=== PATIENT | male | born 2000 | race Hispanic/Latino ===

== ENCOUNTER 2019-05-04 20:53 | Emergency (ER) | payer OTHER, SELFPAY ==
[2019-05-04] MEDS ORDERED: Ondansetron PF 4 MG/2 ML Vial ONE (21:35)
[2019-05-04 21:40] LABS: #Basophils 0.1 thou/uL (0.0-0.2); #Eosinphils 0.3 thou/uL (0.0-0.7); #Lymphocytes 2.7 thou/uL (1.20-3.40); #Monocytes 0.9 thou/uL (0.11-0.59); #Neutrophils 6.6 thou/uL (1.40-6.50); %Basophils 0.6 % (0.0-1.0); %Lymphocytes 25.4 % (21.0-51.0); %Monocytes 8.2 % (0.0-10.0); %Neutrophils 62.7 % (42.0-75.0); Hemoglobin 14.4 g/dL (14.0-18.0); Mean Corpuscular HGB CONC 34.8 g/dL (32.0-36.0); Mean Corpuscular Hemoglobin 33.3 pg (27.0-31.0); Mean Corpuscular Volume 95.8 fL (78.0-98.0); Platelet Count 202 thou/uL (130-400); Red Blood Cell (RBC) Count 4.31 mill/uL (4.70-6.10); White Blood Cell (WBC) Count 10.5 thou/uL (4.8-10.8)
[2019-05-04 22:01] LABS: ALT (SGPT) 13 U/L (8-55); AST (SGOT) 14 U/L (5-34); Alkaline Phosphatase 63 U/L (40-150); Anion Gap 13 mmol/L (10-20); BUN (Urea Nitrogen) 13 mg/dL (8.9-20.6); Bilirubin, Total 0.3 mg/dL (0.2-1.2); Calc. Creatinine Clearance 0 mL/min (70-130); Calcium 9.1 mg/dL (7.8-10.44); Carbon Dioxide 24 mmol/L (22-29); Chloride 105 mmol/L (98-107); Estimated GFR-MDRD Greater than 90; Globulin 2.2 g/dL (2.4-3.5); Glucose 85 mg/dL (70-105); Lipase 25 U/L (8-78); Magnesium 2.1 mg/dL (1.6-2.6); Potassium 3.8 mmol/L (3.5-5.1); Protein, Total 6.2 g/dL (6.0-8.3); Sodium 138 mmol/L (136-145)
[2019-05-04] MEDS ORDERED: Ibuprofen 200 MG TAB ONE (23:05)
== END 2019-05-04 23:14 | disposition home or self-care (01) ==
LOC: ERS 20:53
DX: R11.2 Nausea with vomiting, unspecified (principal); R19.7 Diarrhea, unspecified; J45.909 Unspecified asthma, uncomplicated; F17.210 Nicotine dependence, cigarettes, uncomplicated
CPT/HCPCS: 80053; 83690; 83735; 85025; 94760; 96361; 96374; J2405

== ENCOUNTER 2019-05-10 21:50 | Emergency (ER) | payer SELFPAY | END 2019-05-10 22:35 | disposition home or self-care (01) | LOC: ERS 21:50 | DX: J45.901 Unspecified asthma with (acute) exacerbation (principal); F17.210 Nicotine dependence, cigarettes, uncomplicated | CPT/HCPCS: 99284 ==

== ENCOUNTER 2019-08-15 18:06 | Emergency (ER) | payer SELFPAY ==
--- NOTE | 2019-08-15 18:30 | RAD ---
EXAM: XR Hand Rt 3 View STANDARD PROVIDED CLINICAL HISTORY: Pain FINDINGS: There is no evidence for fracture or other acute osseous abnormality. Alignment appears anatomic. Estephania nt spaces appear preserved. IMPRESSION: No evidence for an acute osseous abnormality. If there is persistent clinical concern, conservative m anagement and follow-up imaging advised.
== END 2019-08-15 19:02 | disposition home or self-care (01) ==
LOC: ERS 18:06
DX: S60.221A Contusion of right hand, initial encounter (principal); F17.210 Nicotine dependence, cigarettes, uncomplicated; J45.909 Unspecified asthma, uncomplicated; W01.10XA Fall on same level from slipping, tripping and stumbling with subsequent striking against unspecified object, initial encounter

== ENCOUNTER 2019-11-22 12:11 | Emergency (ER) | payer SELFPAY ==
[2019-11-22] MEDS ORDERED: Ondansetron ODT 4 MG TAB ONE (12:50)
[2019-11-22 12:57] LABS: Bilirubin Negative (Negative); Blood, Urine Negative (Negative); Clarity Clear (Clear); Glucose, Urine (Dipstick) Normal (Negative); Leukocyte Negative Leu/uL (Negative); Nitrite Negative (Negative); Protein, Urine (Dipstick) Negative (Neg-Trace); Urobilinogen Normal mg/dL (Less than 2)
== END 2019-11-22 12:58 | disposition home or self-care (01) ==
LOC: ERS 12:11
DX: R11.2 Nausea with vomiting, unspecified (principal); R19.7 Diarrhea, unspecified; J45.909 Unspecified asthma, uncomplicated
CPT/HCPCS: 81003; 99284; Q0162

== ENCOUNTER 2019-12-08 15:07 | Emergency (ER) | payer BC, SELFPAY ==
--- NOTE | 2019-12-08 15:31 | RAD ---
Left hand 3 views HISTORY: Fall. Injury. FINDINGS: Joint spaces are preserved. No acute fracture, dislocation, or radiopaque foreign bodies ar e apparent. Soft tissue swelling is evident about the base of the thumb. IMPRESSION : No acute osseous abnormalities are demonstrated.
== END 2019-12-08 16:26 | disposition home or self-care (01) ==
LOC: ERS 15:07
DX: S63.91XA Sprain of unspecified part of right wrist and hand, initial encounter (principal); J45.909 Unspecified asthma, uncomplicated; W18.30XA Fall on same level, unspecified, initial encounter

== ENCOUNTER 2021-06-04 06:05 | Emergency (ER) | payer SELFPAY ==
[2021-06-04] MEDS ORDERED: Ondansetron PF 4 MG/2 ML Vial ONE (07:18)
[2021-06-04] MEDS ORDERED: Ketorolac Tromethamine 30 MG/ML VIAL ONE (07:18)
== END 2021-06-04 08:45 | disposition home or self-care (01) ==
LOC: ERS 06:05
DX: R11.2 Nausea with vomiting, unspecified (principal); R19.7 Diarrhea, unspecified; J45.909 Unspecified asthma, uncomplicated
CPT/HCPCS: 96372; 96374; 96375; J0500; J1885; J2405

== ENCOUNTER 2024-02-03 23:18 | Emergency (ER) | payer OTHER | END 2024-02-04 01:52 | LOC: EEVIPCON 23:18 → ERS 23:18 | DX: S66.10 Unspecified injury of flexor muscle, fascia and tendon of other and unspecified finger at wrist and hand level (principal); S66.102A Unspecified injury of flexor muscle, fascia and tendon of right middle finger at wrist and hand level, initial encounter; X50.0XXA Overexertion from strenuous movement or load, initial encounter; Y93.67 Activity, basketball ==

== ENCOUNTER 2024-03-01 22:45 | Emergency (ER) | payer OTHER, SELFPAY ==
[2024-03-01] MEDS ORDERED: Ibuprofen 200 MG TAB ONE (23:59)
[2024-03-02] MEDS ORDERED: HYDROcodone/Acetaminophen 5/325 mg Tablet ONE (00:47)
== END 2024-03-02 00:53 ==
LOC: ERS 22:45 → EEVIPCON 22:45 → ERS 03-02 00:53
DX: S92.511A Displaced fracture of proximal phalanx of right lesser toe(s), initial encounter for closed fracture (principal); W22.8XXA Striking against or struck by other objects, initial encounter; Z55.6 Problems related to health literacy
CPT/HCPCS: 28515